=== PATIENT | female | born 1955 | race Caucasian/White ===

== ENCOUNTER 2016-04-02 15:17 | Emergency (ER) | payer OTHER ==
[2016-04-02 16:29] VITALS: BP 132/70
== END 2016-04-02 16:43 | disposition left against medical advice (07) ==
LOC: ED 15:17
DX: M79.89 Other specified soft tissue disorders (principal); Z53.21 Procedure and treatment not carried out due to patient leaving prior to being seen by health care provider
CPT/HCPCS: 99282